=== PATIENT | female | born 1965 | race African-American/Black ===

== ENCOUNTER → 2021-08-23 | Day surgery (SDC) | payer MEDICAID ==
[~2021-08-23] VITALS: Ht 160 cm; Wt 140.6 kg
[~2021-08-23] MED LIST: BALANCED SALT IRRIG SOLN 15ML ONE; CIPROFLOXACIN 0.3% OPHTH SOLN 2.5ML ONE; CYCLOPENTOLATE HCL 1% OPHTH DROPS 2ML ONE; CYCLOPENTOLATE HCL 1% OPHTH DROPS 2ML RIGHTEYE SCH; FENTANYL CITRATE/PF 50MCG/ML 2ML VIAL ONE; HYALURONATE SODIUM 10 MG/ML 0.55ML SYRINGE IO ONE; KETOROLAC 30MG/ML VIAL ONE; LACTATED RINGERS 1,000 ML IV SCH; LIDOCAINE HCL/PF 2% 20 MG/ML 10ML VIAL ONE; MIDAZOLAM HCL 2 MG/2 ML VIAL ONE; NEO/POLYMYX B SULF/DEXAMETH OPHTH OINT 3.5GM ONE; PHENYLEPHRINE HCL 10% OPHTH DROPS 5ML ONE; PHENYLEPHRINE HCL 10% OPHTH DROPS 5ML RIGHTEYE NR; PREDNISOLONE ACETATE 1% OPHTH DROPS 5ML ONE; TETRACAINE 0.5% OPHTH DROPS 4ML ONE; TROPICAMIDE 1% OPHTH DROPS 15ML ONE; TROPICAMIDE 1% OPHTH DROPS 15ML RIGHTEYE NR
== END | disposition home or self-care (01) ==
LOC: OR 06:34
PROVIDERS: ATTEND Ophthalmology
DX: H25.89 Other age-related cataract (principal); Z79.899 Other long term (current) drug therapy; Z98.890 Other specified postprocedural states; Z20.822 Contact with and (suspected) exposure to COVID-19
CPT/HCPCS: 66982; 87426; C9803; J1885; J2250; J3010; J3490; V2632

== ENCOUNTER → 2021-11-08 | Day surgery (SDC) | payer MEDICAID ==
[~2021-11-08] VITALS: Ht 162.6 cm; Wt 140.6 kg
[~2021-11-08] MED LIST changes: +BALANCED SALT IRRIG SOLN COMB1 500ML OP SCH; +CYCLOPENTOLATE HCL 1% OPHTH DROPS 2ML LEFTEYE ONE; -CYCLOPENTOLATE HCL 1% OPHTH DROPS 2ML RIGHTEYE SCH; +MIDAZOLAM HCL 5 MG/5 ML VIAL ONE; +ONDANSETRON HCL 4MG/2ML INJ ONE; +PHENYLEPHRINE HCL 10% OPHTH DROPS 5ML LEFTEYE ONE; -PHENYLEPHRINE HCL 10% OPHTH DROPS 5ML RIGHTEYE NR; +TROPICAMIDE 1% OPHTH DROPS 15ML LEFTEYE ONE; -TROPICAMIDE 1% OPHTH DROPS 15ML RIGHTEYE NR
[2021-11-08 10:12] LABS: BASOPHILS % 0.8 % (0.0-2.0); EOSINOPHILS % 5.6 % (0.0-5.0); HEMATOCRIT. 38.8 % (36.0-48.0); HEMOGLOBIN. 12.8 g/dL (12.0-16.0); LYMPHOCYTES % 38.1 % (20.0-50.0); MEAN CORPUSCULAR VOLUME 81.9 fL (81.0-99.0); MEAN PLATELET VOLUME 7.7 fl (7.4-10.4); MONOCYTES % 8.3 % (2.0-8.0); NEUTROPHILS % 47.2 % (40.0-76.0); PLATELET 294 x1000/uL (130-400); RED BLOOD CELL COUNT 4.74 mill/uL (4.2-5.4); RED CELL DISTRIBUTION WIDTH 13.6 % (11.6-14.6)
[2021-11-08 10:14] LABS: CHLORIDE 111 mEq/L (98-107)
== END | disposition home or self-care (01) ==
LOC: OR 08:11
PROVIDERS: ATTEND Ophthalmology
DX: H25.89 Other age-related cataract (principal); D64.9 Anemia, unspecified; Z79.899 Other long term (current) drug therapy; Z98.890 Other specified postprocedural states
CPT/HCPCS: 36415; 66984; 80048; 85025; 93005; J1885; J2250; J2405; J3010; J3490; V2632